=== PATIENT | female | born 1985 | race Caucasian/White ===

== ENCOUNTER 2018-04-27 15:45 | Day surgery (SDC) | payer OTHER ==
[2018-04-27] MEDS ORDERED: PROPOFOL 20 ML (17:08)
[2018-04-27] MEDS ORDERED: FENTAnyl 50 MCG/ML VIAL (17:08)
[2018-04-27] MEDS ORDERED: MIDAZOLAM 1 MG/ML 2 ML INJ (17:08)
[2018-04-27] MEDS ORDERED: ONDANSETRON 4 MG INJ IV (17:30)
[2018-04-27] MEDS ORDERED: HYDROmorphONE 1 MG/5 ML IV SYRINGE IV ×3 (17:30)
[2018-04-27] MEDS ORDERED: METOCLOPRAMIDE 10 MG INJ IV (17:30)
[2018-04-27] MEDS ORDERED: DIPHENHYDRAMINE 50 MG INJ IV (17:30)
[2018-04-27] MEDS ORDERED: EPHEDrine SULFATE 50 MG/5 ML SYG IV (17:30)
[2018-04-27] MEDS ORDERED: OXYCODONE/ACETAMINOPHEN (5/325) TAB PO (17:30)
[2018-04-27] MEDS ORDERED: FENTAnyl 50 MCG/ML VIAL IV ×3 (17:30)
[2018-04-27] MEDS ORDERED: MEPERIDINE 25 MG INJ IV (17:30)
[2018-04-27] MEDS ORDERED: ONDANSETRON 4 MG INJ (17:32)
[2018-04-27] MEDS ORDERED: METOCLOPRAMIDE 10 MG INJ (17:33)
[2018-04-27] MEDS ORDERED: DEXAMETHASONE 4 MG/ML 1 ML INJ (17:33)
[2018-04-27] MEDS ORDERED: OXYTOCIN 10 UNIT INJ (17:33)
[2018-04-27] MEDS ORDERED: KETOROLAC 30 MG INJ (17:33)
[2018-04-27] MEDS ORDERED: CEFAZOLIN 1 GM INJ (17:47)
[2018-04-27] MEDS ORDERED: ACETAMINOPHEN 325 MG TAB PO (18:30)
== END 2018-04-27 19:24 | disposition home or self-care (01) ==
LOC: SDS 15:45
DX: O03.4 Incomplete spontaneous abortion without complication (principal)
CPT/HCPCS: 59812; 88305